=== PATIENT | female | born 1980 | race American Indian/Alaskan Native ===

== ENCOUNTER 2018-04-01 07:28 | Emergency (ER) | payer BC, OTHER ==
[2018-04-01] MEDS ORDERED: Lactated Ringer 1,000 ML IV ONE (07:42)
[2018-04-01] MEDS ORDERED: Morphine Sulfate 2 mg/mL 1mL Syr IVP STA (08:20)
[2018-04-01] MEDS ORDERED: Morphine Sulfate 2 mg/mL 1mL Syr ONE (08:48)
--- NOTE | 2018-04-06 14:42 | ER Physician Documentation ---
DATE OF SERVICE: 04/01/2018 CHIEF COMPLAINT: Lower abdominal pain. HISTORY OF PRESENT ILLNESS: This is a 37-year-old female who presents with a complaint of lower abdominal pain one day after a tubal ligation reversal. She was not given any pain pills by the surgeon. They were called in to [place], but she is not leaving for [place] for at least a day and a half. Therefore, she presented with complaint of pain. She denies any nausea, vomiting, diarrhea, or constipation. REVIEW OF SYSTEMS: Positive for lower abdominal pain. Review of system negative for nausea, vomiting, diarrhea, constipation, fevers, or chills. No history of dysuria. PHYSICAL EXAMINATION: GENERAL: The patient is a well-developed, well-nourished female in pain. LUNGS: Clear to auscultation bilaterally. CARDIOVASCULAR: Regular rate and rhythm. ABDOMEN: Positive bowel sounds present, not distended. Minimal tenderness present in the lower abdominal area. There is a thin panty liner present covering her Steri-Strips with minimal amount of old blood on it. Normal bowel sounds, nontender except for minimal tenderness around the actual incision itself. No signs of infection present. EMERGENCY DEPARTMENT COURSE: The patient was treated with Toradol 30 mg IV and then before discharge, she was treated with 2 mg IV of morphine. She was given IV fluids. She felt much better, was ready for discharge. The patient was given a prescription for Zofran as needed as well as Tylenol No. 3, #12. She is to follow up with her surgeon and go back to [place] per their plans. JOB# [id number] [facility]
== END 2018-04-01 09:21 | disposition home or self-care (01) ==
LOC: ER 07:28
DX: G89.18 Other acute postprocedural pain (principal); R10.30 Lower abdominal pain, unspecified; Z98.51 Tubal ligation status
CPT/HCPCS: 99283; 96374; 96375; J2270; J1885; Z7502